=== PATIENT | male | born 1950 | race Caucasian/White ===

== ENCOUNTER 2018-11-13 10:13 | Outpatient (CLI) | payer MEDICARE ==
--- NOTE | 2018-11-13 11:01 | ULT ---
FUS Testicular W Doppler History: [Testicular pain] Comparison: None Findings: Real-time grayscale and color evaluation of the testicles was performed. The testicular ech otexture and vascularity is normal and symmetric. There is a cyst in the right testicle adjacent to t he rete testes. There is ectasia of the rete testes bilaterally. Both epididymides are normal. No mas s. No significant hydrocele. 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 Normal vascu larity. No underlying mass.
== END 2018-11-13 10:14 | disposition home or self-care (01) ==
LOC: BICULT 10:13
PROVIDERS: ATTEND Family Medicine
DX: N50.811 Right testicular pain (principal); N44.2 Benign cyst of testis; N50.89 Other specified disorders of the male genital organs
CPT/HCPCS: 76870; 93976

== ENCOUNTER 2024-08-08 16:40 | Inpatient (IN) | payer MEDICARE ==
[2024-08-08 18:12] LABS: #Basophils 0.04 10x3/uL (0.0-0.2); %Basophils 0.6 % (0.0-1.0); %Eosinophils 0.9 % (0.0-10.0); %Lymphocytes 21.4 % (21.0-51.0); %Monocytes 4.6 % (0.0-10.0); %Neutrophils 70.1 % (42.0-75.0); Hematocrit 38.7 % (42.0-52.0); Hemoglobin 13.7 g/dL (14.0-18.0); Mean Corpuscular HGB CONC 35.4 g/dL (32.0-36.0); Mean Corpuscular Hemoglobin 30.2 pg (27.0-31.0); Mean Corpuscular Volume 85.4 fL (78.0-98.0); Mean Platelet Volume 10.3 fL (7.4-10.4); Platelet Count 202 10x3/uL (130-400); Red Blood Cell (RBC) Count 4.53 mill/uL (4.70-6.10)
[2024-08-08 18:30] LABS: ALT (SGPT) 16 U/L (8-55); AST (SGOT) 14 U/L (5-34); Albumin 3.9 g/dL (3.4-4.8); Alkaline Phosphatase 93 U/L (40-110); Anion Gap 15 mmol/L (10-20); BUN (Urea Nitrogen) 16 mg/dL (8.4-25.7); Bilirubin, Total 0.6 mg/dL (0.2-1.2); Calc. Creatinine Clearance 0 mL/min (70-130); Carbon Dioxide 22 mmol/L (23-31); Chloride 100 mmol/L (98-107); Estimated GFR 95; Globulin 2.3 g/dL (2.4-3.5); Glucose 141 mg/dL (83-110); Potassium 3.1 mmol/L (3.5-5.1); Protein, Total 6.2 g/dL (5.8-8.1); Sodium 134 mmol/L (136-145)
[2024-08-08 18:32] LABS: Troponin I Less than 0.010 ng/mL (< 0.028)
[2024-08-08] MEDS ORDERED: Potassium Bicarbonate/Cit Ac 20 MEQ TAB ONE (18:54)
[2024-08-08] MEDS ORDERED: Potassium Chloride 20 MEQ TAB ONE (18:55)
[2024-08-08] MEDS ORDERED: Acetaminophen 650 MG Suppository PR PRN (19:39)
[2024-08-08] MEDS ORDERED: Acetaminophen 325 MG TAB PO PRN (19:39)
[2024-08-08] MEDS ORDERED: Glucagon 1 MG/ML KIT IM PRN (19:39)
[2024-08-08] MEDS ORDERED: Ondansetron ODT 4 MG TAB PO PRN (19:39)
[2024-08-08] MEDS ORDERED: Ondansetron PF 4 MG/2 ML Vial IVP PRN (19:39)
[2024-08-08] MEDS ORDERED: Dextrose 5% in Water 1,000 ML IV PRN (19:39)
[2024-08-08] MEDS ORDERED: Dextrose 50% Abboject 50 ML SYRINGE SLOW IVP PRN (19:39)
[2024-08-08 20:03] LABS: Magnesium 1.8 mg/dL (1.6-2.6); Phosphorus 2.3 mg/dL (2.3-4.7)
[2024-08-08 20:12] VITALS: BMI 27.6
[2024-08-08] MEDS ORDERED: Atorvastatin Calcium 40 MG TAB ONE (20:59)
[2024-08-08] MEDS ORDERED: Atorvastatin Calcium 20 MG TAB PO SCH ×2 (21:00)
[2024-08-08] MEDS: Atorvastatin Calcium 40 MG TAB PO SCH (21:00)
[2024-08-08 22:14] LABS: Troponin I Less than 0.010 ng/mL (< 0.028)
[2024-08-09 01:09] LABS: Troponin I Less than 0.010 ng/mL (< 0.028)
[2024-08-09 05:24] LABS: #Basophils 0.03 10x3/uL (0.0-0.2); %Basophils 0.5 % (0.0-1.0); %Eosinophils 1.5 % (0.0-10.0); %Lymphocytes 25.9 % (21.0-51.0); %Monocytes 8.7 % (0.0-10.0); %Neutrophils 62.4 % (42.0-75.0); Hematocrit 40.8 % (42.0-52.0); Mean Corpuscular HGB CONC 34.3 g/dL (32.0-36.0); Mean Corpuscular Hemoglobin 29.9 pg (27.0-31.0); Mean Platelet Volume 10.6 fL (7.4-10.4); Platelet Count 197 10x3/uL (130-400); RBC Distribution Width 12.3 % (11.5-14.5); Red Blood Cell (RBC) Count 4.69 mill/uL (4.70-6.10)
[2024-08-09 06:00] LABS: Anion Gap 14 mmol/L (10-20); BUN (Urea Nitrogen) 15 mg/dL (8.4-25.7); Calc. Creatinine Clearance 120 mL/min (70-130); Calcium 9.3 mg/dL (7.8-10.44); Carbon Dioxide 26 mmol/L (23-31); Chloride 103 mmol/L (98-107); Estimated GFR 95; Glucose 147 mg/dL (83-110); Magnesium 1.9 mg/dL (1.6-2.6); Phosphorus 3.5 mg/dL (2.3-4.7); Potassium 3.7 mmol/L (3.5-5.1); Sodium 139 mmol/L (136-145)
[2024-08-09] MEDS ORDERED: Aspirin Chewable 81 MG TAB ONE (09:37)
[2024-08-09] MEDS ORDERED: Losartan 25 MG TAB ONE (09:37)
[2024-08-09] MEDS ORDERED: Enoxaparin 40 MG (0.4 mL) SYRINGE ONE (09:37)
[2024-08-09] MEDS: dilTIAZem CD 180 MG CAP PO SCH (11:51)
[2024-08-09] MEDS: Aspirin Chewable 81 MG TAB PO SCH (11:51)
[2024-08-09] MEDS: Enoxaparin 40 MG (0.4 mL) SYRINGE SC SCH (11:51)
[2024-08-09] MEDS: Losartan 25 MG TAB PO SCH (11:52)
[2024-08-10] MEDS ORDERED: Lisinopril 5 MG TAB PO SCH (09:00)
[2024-08-10] MEDS: Metoprolol Tartrate 25 MG TAB PO SCH (09:26)
[2024-08-10 10:12] LABS: Anion Gap 13 mmol/L (10-20); BUN (Urea Nitrogen) 17 mg/dL (8.4-25.7); Calc. Creatinine Clearance 119 mL/min (70-130); Calcium 9.4 mg/dL (7.8-10.44); Carbon Dioxide 24 mmol/L (23-31); Chloride 105 mmol/L (98-107); Estimated GFR 94; Glucose 225 mg/dL (83-110); Magnesium 2.1 mg/dL (1.6-2.6); Sodium 138 mmol/L (136-145)
[2024-08-10] MEDS: Insulin Lispro 100 UNIT/ML 10 ML VIAL SC PRN (17:37)
[2024-08-11] MEDS ORDERED: Regadenoson 0.4 MG/5 ML SYRINGE ONE (09:00)
[2024-08-11] MEDS ORDERED: Communication Order-Pharmacy FS SCH (14:15)
[2024-08-11] MEDS: Sodium Chloride 0.9% 1,000 ML IV SCH ×2 (14:46→17:57)
[2024-08-11] MEDS ORDERED: Nitroglycerin 50 MG/250 ML BOT 250 ML ONE (15:41)
[2024-08-11] MEDS ORDERED: Verapamil 5 MG/2 ML VIAL ONE (15:41)
[2024-08-11] MEDS ORDERED: Adenosine 6 mg (2 mL) VIAL ONE (15:41)
[2024-08-11] MEDS ORDERED: Heparin 10,000 UNITS/ 10 ML VIAL ONE (15:41)
[2024-08-11] MEDS ORDERED: Midazolam HCl 2 mg/2 ml Vial ONE (16:32)
[2024-08-11] MEDS ORDERED: fentaNYL 50 mcg/mL 1 mL Vial ONE (16:32)
[2024-08-11] MEDS ORDERED: Atropine Sulfate 1 mg/10 ml Syringe ONE (16:32)
[2024-08-11] MEDS ORDERED: Nitroglycerin 0.4 MG TAB (25 Tab Bottle) SL PRN (17:03)
[2024-08-11] MEDS ORDERED: Acetaminophen/Codeine 30-300mg Tablet PO PRN ×2 (17:03)
[2024-08-11] MEDS ORDERED: Sodium Chloride 0.9% 200 ML IV PRN (17:03)
[2024-08-12 05:16] LABS: #Basophils 0.04 10x3/uL (0.0-0.2); %Basophils 0.6 % (0.0-1.0); %Eosinophils 1.1 % (0.0-10.0); %Lymphocytes 29.7 % (21.0-51.0); %Neutrophils 60.1 % (42.0-75.0); Hematocrit 40.1 % (42.0-52.0); Hemoglobin 13.7 g/dL (14.0-18.0); Mean Corpuscular HGB CONC 34.2 g/dL (32.0-36.0); Mean Corpuscular Hemoglobin 30.2 pg (27.0-31.0); Mean Corpuscular Volume 88.3 fL (78.0-98.0); Mean Platelet Volume 10.2 fL (7.4-10.4); Platelet Count 182 10x3/uL (130-400); RBC Distribution Width 12.3 % (11.5-14.5); Red Blood Cell (RBC) Count 4.54 mill/uL (4.70-6.10)
[2024-08-12 05:35] LABS: Anion Gap 13 mmol/L (10-20); BUN (Urea Nitrogen) 17 mg/dL (8.4-25.7); Calc. Creatinine Clearance 98 mL/min (70-130); Calcium 8.7 mg/dL (7.8-10.44); Carbon Dioxide 25 mmol/L (23-31); Chloride 106 mmol/L (98-107); Estimated GFR 89; Glucose 125 mg/dL (83-110); Magnesium 2.2 mg/dL (1.6-2.6); Potassium 3.8 mmol/L (3.5-5.1); Sodium 140 mmol/L (136-145)
[2024-08-12 11:51] VITALS: BP 115/56; TEMP 97.7
== END 2024-08-12 13:52 | disposition home or self-care (01) | DRG 287 ==
LOC: SUATTDRO 16:40 → ERS 16:40 → ERHOLD 19:43 → OBS 08-09 14:48
PROVIDERS: ADMIT Family Medicine; ATTEND Internal Medicine
PROC: 4A023N7 Measurement of Cardiac Sampling and Pressure, Left Heart, Percutaneous Approach (ICD-10-PCS; principal; 2024-08-11)
PROC: B2111ZZ Fluoroscopy of Multiple Coronary Arteries using Low Osmolar Contrast (ICD-10-PCS; 2024-08-11)
PROC: B2151ZZ Fluoroscopy of Left Heart using Low Osmolar Contrast (ICD-10-PCS; 2024-08-11)
DX: I47.20 Ventricular tachycardia, unspecified (principal); E87.1 Hypo-osmolality and hyponatremia; E78.5 Hyperlipidemia, unspecified; I10 Essential (primary) hypertension; E11.9 Type 2 diabetes mellitus without complications; F40.240 Claustrophobia; I25.10 Atherosclerotic heart disease of native coronary artery without angina pectoris; Z90.49 Acquired absence of other specified parts of digestive tract; E87.6 Hypokalemia; Z79.82 Long term (current) use of aspirin; Z79.84 Long term (current) use of oral hypoglycemic drugs; Z79.899 Other long term (current) drug therapy; R00.1 Bradycardia, unspecified
CPT/HCPCS: 36415; 36416; 71045; 78452; 80048; 80053; 83735; 83880; 84100; 84443; 84484; 85025; 93005; 93010; 93017; 93306; 93458; 99152; 99156; A9502; C1769; C1894; J0153; J0461; J1644; J1650; J1815; J2250; J2785; J3010